=== PATIENT | male | born 1945 | race Caucasian/White ===

== ENCOUNTER 2017-02-25 10:28 | Inpatient (IN) | payer MEDICARE, OTHER ==
[~2017-02-25] VITALS: Ht 175.3 cm; Wt 103.4 kg
[2017-02-25] VITALS (9 sets, daily range): BP systolic 104–127; BP diastolic 69–72; PULSE 85–113; RESP 18–24; O2SAT 83–95
[~2017-02-25 10:28] MED LIST: ALLO100T PO; ASPI81TA PO; BENA40TA60 PO; CARV25T PO; FURO20TA PO; PRAV80TA PO
--- NOTE | 2017-02-25 11:01 | ED.REPORT ---
HPI-Dyspnea / Wheezing Date of Service February 25, 2017 ED Provider: Rojelio Camp 71 year old male with a history of COPD, CHF, and atrial fibrillation presents to the ER accompanied by his complaining of two weeks of shortness of breath and cough. He was referred by Dr. Garsia, PCP, due to decreased O2 saturation in the 80's at his appointment today. Associated symptoms include bilateral lower extremity swelling, and chills. reports intermittent severe coughing fits lasting up to 3 minutes, and a "rattling" noise with inspiration. He also reports numbness of the bilateral lower extremities, though he states this is chronic. For years he has slept upright to relieve respiratory symptoms. Patient denies chest pain, abdominal pain, and fever. Nursing Notes Stated Complaint: RESP PROBLEMS,SENT BY Chief Complaint: Respiratory Distress Nursing Notes Reviewed: Yes Allergies: Coded Allergies: No Known Allergies (Verified , 08/17/13) Scheduled Allopurinol-Expunged Drug, Do Not Renew! (Allopurinol-Expunged Drug, Do Not Renew!) 100 Mg Tablet 100 MG PO DAILY Atorvastatin (Lipitor) 40 Mg Tablet 40 MG PO DAILY Benazepril-Expunged Drug, Do Not Renew! (Lotensin-Expunged Drug, Do Not Renew!) 40 Mg Tablet 40 MG PO BID Furosemide (Furosemide) 40 Mg Tablet 40 MG PO BID Metoprolol Tartrate (Metoprolol Tartrate) 100 Mg Tablet 50 MG PO BID Warfarin Sodium (Warfarin Sodium) 5 Mg Tablet 5 MG PO DIRECTED 1 tablet PO on Sun, Tues, Thurs, and Sat 1.5 tablets PO on Mon, Wed, Fri General Time Seen by MD: 10:54 Chief Complaint Shortness of breath Hx Obtained From: Patient, Spouse Arrived By: Walk-in Sudden in Onset?: No Onset Occurred: More than a week ago... (2 weeks) Symptom Duration: Since onset Location: : None Associated with: Reports: Cough, Leg swelling, Denies: Chest pain, Fever Pertinent Negative: Pt denies other symptoms Exacerbated by: Lying flat Relieved by: Sitting up Recent Healthcare: Recent doctor visit Similar Sx Previous: Yes Past Medical History Past Medical History CODE STATUS: DNAR, DNI Reports: COPD, Congestive heart failure, Diabetes mellitus, Hypertension Reports: Atrial fibrillation Past Surgical History CABG x3 Bilateral femoral artery bypass Reports: Back/neck surgery (C-spine) Smoking History Unknown if Ever Smoker Social History 2-3 drinks, 3-4 days per week Other Social History: Good social support, Ambulatory Status Independent Review of Systems Constitutional: Reports: Chills, Denies: Fever Respiratory: Reports: Non-productive cough, Shortness of breath Cardiovascular: Denies: Chest pain Musculoskeletal: Reports: Extremity swelling (Lower, bilateral), Denies: Back pain, Neck pain Complete sys rev & neg: except as marked. GI: Denies: Abdominal pain, Nausea, Vomiting Neurologic: Reports: Numbness (Lower extremities, bilateral) Physical Exam Initial Vital Signs Vital Signs (First) Date Time Temp Pulse Resp B/P Pulse Ox O2 Delivery O2 Flow Rate FiO2 02/25/17 10:30 36.8 100 20 104/69 85 02/25/17 10:52 Room Air 02/25/17 12:44 2 Initial VS: Reviewed Head / Eyes: Atraumatic, Normocephalic Abdomen / GI: Soft, Non-tender, No guarding, No rebound, No distention Extremities: Vascular intact, Neuro intact, No swelling, No tenderness Skin: Warm, Dry, No cyanosis Neurologic: Alert, Oriented, Nonfocal Psychiatric: Mood/affect normal, Behavior normal, Normal thought content General/Constitutional: Awake, Alert Neck: Atraumatic, Supple, No meningismus, Full range of motion, No swelling, Non-tender, No masses Neck Vascular: Positive: JVD moderate Respiratory / Chest: No stridor, No chest tenderness, No chest wall deformity Rales / Rhonchi: Positive: Rhonchi coarse L, Rhonchi coarse R, Rhonchi diffuse Cardiovascular: Heart rate NL, No murmurs Heart Rate / Rhythm: Positive: Irregular rhythm Lower Ext Edema: Positive: Bilateral 2+ Interpretation & Diagnostics Lab Results Interpretation Result Diagram: 02/25/17 1115 02/25/17 1115 Test 02/25/17 11:15 02/25/17 11:30 02/25/17 12:44 White Blood Count 5.6th/mm3 (3.8-10.1) Red Blood Count 4.41mil/mm3 (4.40-5.80) Hemoglobin 13.7g/dL (13.8-17.2) Hematocrit 44.1% (41.0-50.0) Mean Corpuscular Volume 100.0fL (81-100) Mean Corpuscular Hemoglobin 31.1pg (27.0-35.0) Mean Corpuscular Hemoglobin Concent 31.1% (32.0-37.0) Red Cell Distribution Width 15.5% (12.3-15.4) Platelet Count 97bil/L (150-400) Neutrophils (%) (Auto) 65.6% (40-74) Lymphocytes (%) (Auto) 18.3% (14-46) Monocytes (%) (Auto) 14.6% (4-12) Eosinophils (%) (Auto) 1.1% (0-5) Basophils (%) (Auto) 0.2% (0-3) Prothrombin Time 26.0sec (8.1-12.5) Prothromb Time International Ratio 2.39ratio Sodium Level 135mEq/L (134-144) Potassium Level 4.3mEq/L (3.5-5.2) Chloride Level 93mEq/L (97-108) Carbon Dioxide Level 29mmol/L (18-29) Blood Urea Nitrogen 25mg/dL (8-27) Creatinine 1.34mg/dL (0.76-1.27) Estimat Glomerular Filtration Rate 56mL/min (>59) Glucose Level 139mg/dL (60-99) Calcium Level 9.2mg/dL (8.5-10.1) Magnesium Level 1.5mg/dL (1.6-2.6) Total Bilirubin 0.9mg/dL (0.0-1.2) Aspartate Amino Transf (AST/SGOT) 23U/L (0-50) Alanine Aminotransferase (ALT/SGPT) 5U/L (0-44) Alkaline Phosphatase 118U/L (25-160) Troponin T 0.029ug/L (0.0-0.011) Pro-B-Type Natriuretic Peptide 4006pg/mL (0-376) Total Protein 6.6g/dL (6.4-8.4) Albumin 3.3g/dL (3.4-5.0) Procalcitonin 0.08ng/mL (0.00-0.08) Lactic Acid Level 1.2mmol/L (0.4-2.0) Urine Color Yellow (YELLOW) Urine Appearance Clear (CLEAR,HAZY) Urine pH 5.5 (5.0-8.0) Urine Specific [place] 1.015 (1.003-1.035) Urine Protein Tracemg/dL (NEG,TRACE) Urine Glucose (UA) Negativemg/dL (NEGATIVE) Urine Ketones Negativemg/dL (NEGATIVE) Urine Occult Blood Negative (NEGATIVE) Urine Nitrite Negative (NEGATIVE) Urine Bilirubin Negative (NEGATIVE) Urine Urobilinogen Normalmg/dL (NORMAL) Urine Leukocyte Esterase Negative (NEGATIVE) Urine RBC 0-2/hpf (0-2) Urine WBC 0-5/hpf (0-5) Urine Epithelial Cells Occasional/hpf (NONE-MOD) Urine Crystals Oxalic acid crystals (NONE Urine Bacteria None/hpf (NONE-FEW) Urine Hyaline Casts 5/20/lpf (NONE) Urine Granular Casts None seen (NONE SEEN) Urine Waxy Casts None seen (NONE SEEN) Urine Red Blood Cell Casts None seen (NONE SEEN) Urine White Blood Cell Casts None seen (NONE SEEN) Urine Mucus Present (None Seen) Urine Trichomonas None seen (NONE SEEN) Urine Yeast None (NONE SEEN) Urinalysis Comment None Urine Culture Reflexed Not indicated ECG Interpretation ECG Interpretation: Atrial fibrillation, rate 77 Time: 10:54 Interpreted by: ED physician X-Ray Chest Interpretation Chest Xray Interpretation: IMPRESSION: Cardiomegaly with edema. Dictated by: Amy Way M.D. on 02/25/2017 at 12:05 Approved by: Amy Way M.D. on 02/25/2017 at 12:07 View: Portable, 1 view Interpretation / Wet Read by: Interpret - Radiologist Re-Eval/Medical Decision Med Decision/Clinical Course Toxic respiratory failure likely due to predominantly congestive heart failure with superimposed chronic bronchitis. Patient received IV Lasix, supple no oxygen, multiple medical treatments and IV steroids. He will be admitted. Source of Hx: Old records Re-Evaluation/Progress #1: Time of Eval: 11:12 Re-Evaluation/Progress Note: Discussed physical examination findings and need for admission pending further diagnostic testing. All other questions addressed. Re-Evaluation/Progress #2: Time of Eval: 12:23 Re-Evaluation/Progress Note: Discussed lab and imaging results and need for admission. Patient is amenable to the plan. All other questions addressed. Re-Evaluation/Progress #3: Time of Eval: 13:34 Re-Evaluation/Progress Note: Discussed code status with patient. CODE STATUS: DNAR, DNI Consultation : Referral / Consult Name: Parvin Mcknight DO Consulted With: Hospitalist Call Returned at: 13:32 Hotel Registration Clerk: Agrees with eval, Agrees with plan, Accepts admit Counseled Regarding: Diagnosis, Lab results, Need for admission Discharge & Departure Impression: Primary Impression: CHF exacerbation Additional Impression: Acute respiratory failure with hypoxia Disposition: ADMITTED TO HOSPITAL Discharge Condition All VS Reviewed: Yes Condition: Stable Referrals: Marisol Garsia MD (PCP) Scribe Attestation Portions of this note were transcribed by Petar Hardy. I, Dr. Camp, personally performed the history, physical exam and medical decision-making; I reviewed and confirmed the accuracy of the information in the transcribed note. Signed by: Kentrell Fermin, 02/25/2017 and 13:35 copies to: Marisol Garsia MD, Timothy S DO February 25, 2017 11:01 PETAR HARDY February 25, 2017 11:03
[2017-02-25] MEDS ORDERED: FURO40TA4 PO (11:03)
[2017-02-25] MEDS ORDERED: METO100T3 PO (11:04)
[2017-02-25] MEDS ORDERED: WARF5TAB7 PO (11:04)
[2017-02-25] MEDS ORDERED: LIP40 PO (11:04)
[2017-02-25] MEDS ORDERED: MethylprednisoLONE Sodium Succinate 62.5 mg/mL 2 mL Inj IVPUSH ONE (11:15)
[2017-02-25 11:29] LABS: BASOPHILS % (AUTO) 0.2 % (0-3); EOSINOPHILS % (AUTO) 1.1 % (0-5); MONOCYTES % (AUTO) 14.6 % (4-12); Mean Corpuscular Hemoglobin 31.1 pg (27.0-35.0); NEUTROPHILS % (AUTO) 65.6 % (40-74); Platelet Count 97 bil/L (150-400)
[2017-02-25 11:52] LABS: INR 2.39 ratio; TROPONIN T 0.029 ug/L (0.0-0.011)
--- NOTE | 2017-02-25 12:08 | DRSVH ---
PROCEDURE: X-RAY CHEST ONE VIEW, PORTABLE ([id number]) INDICATIONS: SOB TECHNIQUE: One view of the chest was acquired. COMPARISON: [facility], , CHEST 2VW, 03/19/2012, 15:06. FINDINGS: Surgical changes and devices: None. Lungs and pleura: No pleural effusions or pneumothorax. There is increased pulmonary vascularity. Mediastinum: Mediastinal contours appear normal. Heart size is mildy enlarged. Bones and chest wall: No suspicious bony lesions. Overlying soft tissues appear unremarkable. IMPRESSION: Cardiomegaly with edema. Dictated by: Amy Way M.D. on 02/25/2017 at 12:05 Approved by: Amy Way M.D. on 02/25/2017 at 12:07
[2017-02-25 12:16] LABS: Magnesium 1.5 mg/dL (1.6-2.6)
[2017-02-25] MEDS ORDERED: Albuterol 2.5 mg/3 mL Inhalation Solution NEB ONE (12:20)
[2017-02-25] MEDS ORDERED: Furosemide 10 mg/mL 4 mL Inj IVPUSH ONE (12:20)
[2017-02-25 13:08] LABS: APPEARANCE,URINE CLEAR (CLEAR,HAZY); COLOR,URINE YELLOW (YELLOW); OCCULT BLOOD,URINE NEGATIVE (NEGATIVE); PH,URINE 5.5 (5.0-8.0); UROBILINOGEN,URINE NORMAL (NORMAL)
[2017-02-25] MEDS ORDERED: Alum-Mag Hydrox-Simeth 30 mL Suspension PO PRN (13:35)
[2017-02-25] MEDS ORDERED: Ondansetron 2 mg/mL 2 mL Inj IVPUSH PRN (13:35)
[2017-02-25] MEDS ORDERED: ZYL100 PO (14:06)
[2017-02-25] MEDS ORDERED: BENA40TA2 PO (14:08)
[2017-02-25] MEDS ORDERED: Levalbuterol 1.25 mg/0.5mL Inhalation Solution NEB PRN (14:15)
[2017-02-25] MEDS: Furosemide 10 mg/mL 4 mL Inj IVPUSH SCH ×2 (14:46→20:29)
--- NOTE | 2017-02-25 14:53 | NUR ---
Admit Pt arrived to the floor at 1345, he was brought by ED staff by willi. Pt was able to stand and transfer himself to the bed. He was a SBA to the bathroom and voided. Denies pain. Alert and oriented. Arrived on 2L O2, denies SOB. Vitals were checked. O2 sat stable on 2L. Put on tele monitor. Oriented to room and call light.
[2017-02-25] MEDS: Ipratropium HFA 200 Puff 12.9 Gm Inhaler INHALATION SCH ×2 (16:30→22:21)
[2017-02-25] MEDS ORDERED: Heparin 5,000 Unit/mL Inj SUBQ SCH (16:30)
--- NOTE | 2017-02-25 20:25 | PCM.HPMED ---
Subjective Date of Service February 25, 2017 Primary Provider: Admitting Physician: Primary Care Physician: Marisol Garsia MD Attending Physician: Admit Status: From the Emergency Department Chief Complaint: Dyspnea History of Present Illness: 71-year-old white male with the past medical history of COPD, chronic bronchitis , gout, congestive heart failure of unknown type, hypertension, atrial fibrillation for which she is on Coumadin, peripheral neuropathy is presenting to the ER from his primary care office. He went to see his PCP as he has been increasingly dyspneic and his PCP was concerned as he was hypoxic and needed oxygen at the clinic. Patient does not have home oxygen, or COPD medications. He says Dr. Koehler for cardiology. He states that at baseline he can only walk 100 feet before becoming short of breath, states it is because of his heart. 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 Patient does not remember whether he took his a.m. medications are not. He states that he has no fevers or chills no vision problems no chest pain. He is finding it hard to lay down flat. is endorsing our double wheezing when he breathes from across the room. Patient denies vision problems, digestive problems, headaches, recent weight loss or weight gain. He does have cough. In the ER chest x-ray showed cardiomegaly with edema. Blood cultures were drawn. Troponins were 0.029, proBNP was elevated at 4000. BUN 25, creatinine 1.34, INR 2.39. He was given 40 mg of IV Lasix, 2 L of oxygen, albuterol treatments, Solu-Medrol 125 mg 1 time dose. ECG Interpretation: Atrial fibrillation, rate 77 A prior echocardiogram from August 2015 showed atrial fibrillation, bradycardia with rate 40-60, ejection fraction of 50-55%, severe biatrial enlargement, aortic sclerosis without stenosis, septal dyskinesis. He does not recall receiving and neck: Within the last 1 year he has seen Dr. Koehler 6 months ago states that he is due in March for a follow-up Patient is admitted to the [facility] for management of acute on chronic heart failure of unknown type. Review of Systems: Gen.: No weight gain patient has been having fevers and malaise Eyes: no visual disturbances or blurring vision HEENT: No nose/throat drainage, no pain in ears or throat, no hearing loss L Cardiac: No chest pain, orthopnea, , palpitations , positive for pedal edema and +dyspnea on exertion Pulmonary: wheezing or bringing up of sputum + worsening dyspnea and cough, left-sided chest pain GI: No anorexia nausea vomiting blood or black in the stool : no dysuria hematuria urinary frequency or decrease in urine output Musculoskeletal: Joint swelling no joint pain no new muscle aches or back pain Neuro: No syncope, seizures no loss of consciousness no new focal weakness, positive for numbness or tingling in feet due to peripheral neuropathy Psychiatric: New new anxiety insomnia or depression Endocrine: No new heat or cold intolerances polyuria or polydipsia Hematology: No lymphadenopathy or easy bleeding or bruising noted skin: Positive for new rashes over her lower legs especially right lower leg, positive for stasis dermatitis Allergies Coded Allergies: No Known Allergies (Verified , 08/17/13) PMH Remarkable for COPD, chronic bronchitis, gout, congestive heart failure, hypertension, atrial fibrillation, severe peripheral neuropathy Surgical History Remarkable for bilateral femoral artery bypass, back or neck C-spine surgery Family History Remarkable for 2-3 drinks 3-4 days per week, half a pack of cigarettes for 60 years, he is a retired [employer] employee. Lives with Social History Occupation: retired [employer] Hx Alcohol Use: Yes ("3 drinks of liquor 4 days a week") Hx Substance Use: No Hx Tobacco Use: Yes (1/2 ppd) Smoking Status: Current Every Day Smoker (half a pack per day), Unknown if Ever Smoker Living Arrangement: with Family Exam Vital Signs Vital Sign - Last Date Time Temp Pulse Resp B/P Pulse Ox O2 Delivery O2 Flow Rate FiO2 02/25/17 12:44 85 18 92 Nasal Cannula 2 02/25/17 10:30 36.8 104/69 Exam Gen.: No acute distress: HEENT: Normocephalic, atraumatic Heart: Irregular, no S3-S4 murmurs Lungs: Bilateral crackles and rales noted, negative for wheezing Abdomen: Normal, nontender, nondistended, normal bowel sounds Extremities: Bilateral lower extremity erythema and edema noted. Right lower extremity worse than left Psych: Negative for anxiety Neuro: No focal deficits Lab and Diagnostics Result Diagram: 02/25/17 1115 02/25/17 1115 X-Rays, CTs and MRIs PROCEDURE: X-RAY CHEST ONE VIEW, PORTABLE ([id number]) INDICATIONS: SOB IMPRESSION: Cardiomegaly with edema. Dictated by: Amy Way M.D. on 02/25/2017 at 12:05 Approved by: Amy Way M.D. on 02/25/2017 at 12:07 Assessment & Plan This is a 71-year-old male presenting to the ER with symptoms of acute on chronic congestive heart failure. Assessment #1 acute on chronic congestive heart failure of unknown type: Present on admission -- Lasix 40 mg IV every 8 hours -- Accurate I&O's, daily weights -- Nitroglycerin has not been ordered due to concern for low blood pressure upon arrival -- Morphine 1-2 g every 4 hours when necessary -- Continue metoprolol, atorvastatin home medications -- Oxygen to keep saturations 80-92% Assessment #2 cellulitis of lower legs, present on admission -- Keflex by mouth he is ordered Assessment #3 COPD, chronic -- Xopenex, Atrovent breathing treatments -- We will hold off on Solu-Medrol as this appears to be primarily CHF -- Nicotine patch Assessment #4 hypertension, chronic -- We will hold benazepril tonight as he will be getting furosemide and blood pressure was on the low side -- Continue metoprolol Assessment #5 atrial fibrillation, chronic: Therapeutic INR upon arrival X -- Pharmacy consult is placed for Coumadin Assessment #6 peripheral neuropathy, present on admission -- Gabapentin 100 mg twice a day is ordered Assessment #7 hyperlipidemia, chronic -- Continue home statin Disposition:: When patient's symptoms resolved he will be expected to be discharged to home GI Prophylaxis: Not indicated VTE Prophylaxis: Theraputic Anticoag with Warfarin Resuscitation Status: DNR/DNI:Do Not Resuscitate/Intubate ( is his alternate decision maker) Time spent 40 minutes Parvin Mcknight DO February 25, 2017 14:02
[2017-02-26] VITALS (7 sets, daily range): BP systolic 113–128; BP diastolic 63–73; PULSE 76–93; RESP 18–22; O2SAT 88–93
[2017-02-26] MEDS: Ipratropium HFA 200 Puff 12.9 Gm Inhaler INHALATION SCH ×3 (06:01→16:06)
[2017-02-26] MEDS: Furosemide 10 mg/mL 4 mL Inj IVPUSH SCH ×3 (09:14→20:21)
[2017-02-26 10:04] LABS: INR 2.36 ratio
--- NOTE | 2017-02-26 10:37 | PCM.CONPHA ---
Subjective Date of Service: February 26, 2017 Warfarin dosing Reason for Pharmacy Consult: Anticoagulation Management Assessment/Plan Assessment/Plan Indication: Afib Home Dose: 5mg Gupta,Tu,Th,Sa , 7.5mg AOD Anticoagulation Trends: Date -February 26-February INR 2.36 2.39 INR change 0.03 Warf Dose 5MG 5MG GOAL INR: 2-3 A/ INR is currently therapeutic and stable at 2.39. P/ Give warfarin 5mg dose today and reevaluate with AM labs tomorrow. Pharmacy will continue to follow daily. Thank you for consulting pharmacy in the care of this patient. [place] February 26, 2017 10:37
--- NOTE | 2017-02-26 12:41 | DRSVH ---
[facility] [address] [place] [address] Echocardiogram Report Name: MARYJO PABLO FStudy Date: 02/26/2017 Height: 69 in Hospital Exam Location: [facility] Weight: 240 lb Gender: Male BSA: 2.2 m2 : 1945 Age: 71 yrs BP: 120/71 mmHg Reason For Study: Congestive Heart Failure Ordering Physician: Performed By: Denisha Mensah Referring Physician: Dr. Brando Garsia Interpretation Summary The left ventricle is moderately dilated. Left ventricular systolic function is mild to moderately reduced. The ejection fraction is estimated to be 40- 45%. Compared to the prior exam, left ventricular function is slightly decreased. There is a large sized apical, septal, and anteroseptal wall motion abnormality with hypokinesis to akinesis of the segments. The right ventricle is mild to moderately dilated. Right ventricular systolic function is mildly reduced. The right ventricular systolic pressure is estimated at 56 mmHg assuming a right atrial pressure of 15 mm Hg. The left atrium is severely dilated. The right atrium is moderate to severely dilated. There is mild mitral regurgitation. There is mild to moderate tricuspid regurgitation. There is no other significant valvular heart disease. No significant changes since last study. The aortic root is normal size. Procedure: A two-dimensional transthoracic echocardiogram with color flow and Doppler was performed. The study quality was technically adequate. Comparison is made with the echocardiogram of 09-01-15. The patient was in atrial fibrillation with heart rates between 86-101 bpm during the exam. Left Ventricle: The left ventricle is moderately dilated. Left ventricular wall thickness is at the upper limits of normal. Left ventricular systolic function is mild to moderately reduced. The ejection fraction is estimated to be 40-45%. Compared to the prior exam, left ventricular function is slightly decreased. Diastolic function could not be accurately assessed due to atrial fibrillation. Right Ventricle: The right ventricle is mild to moderately dilated. Right ventricular systolic function is mildly reduced. Atria: The left atrium is severely dilated. The right atrium is moderate to severely dilated. The interatrial septum is intact with no evidence for an atrial septal defect. Mitral Valve: The mitral valve leaflets appear mildly thickened, but open well. The mitral valve leaflets are slightly calcified. There is mild to moderate mitral annular calcification. There is mild mitral regurgitation. Aortic Valve: The aortic valve opens well. The aortic valve is slightly calcified. There is no aortic regurgitation. Tricuspid Valve: The tricuspid valve leaflets are thin and pliable. There is mild to moderate tricuspid regurgitation. The right ventricular systolic pressure is estimated at 56 mmHg assuming a right atrial pressure of 15 mm Hg. Pulmonic Valve: The pulmonic valve is not well seen, but is grossly normal. There is trace pulmonic regurgitation. There is no other significant valvular heart disease. Great Vessels: The aortic root is normal size. The ascending aorta is at the upper limits of normal in size. The IVC is dilated (diameter is greater than 2.1 cm) and it collapses less than 50% with a sniff. This suggests a high right atrial pressure of 15 mm Hg. Pericardium/ Pleura There is no pericardial effusion. There is no pleural effusion. I WMSI = 1.50 % Normal = 63 There is a la rge sized apical, septal, and anteroseptal wall motion abnormality w ith hypokinesis to akinesis of t he segments. Segments Size X - Cannot 1 - Normal 2 - 3 - Akinetic 4 - 1-2 small Interpret Hypokinetic Dyskinetic 3-5 moder ate 5 - 6-14 large Aneurysmal 15-16 diffu se MMode/2D Measurements & Calculations LVIDd: 6.2 cm LA dimension: 4.9 cm RA long axis: 7.3 cm LVOT diam: 2.3 cm LVIDs: 4.3 cm LA A2 area: 34.0 cm RA area: 30.9 cm AoV Opening FS: 30.1 % RA vol: 111.3 ml EPSS: 1.1 cm LA A4 area: 33.1 cm Ao root diam IVSd: 1.1 cm LA length (vol) RA : 49.9 ml/m LVPWd: 0.95 cm RVDd major: 8.6 cm Aortic Jxn: 2.9 cm LA vol: 144.1 ml asc Aorta Diam LA vol index Ao Arch Diam (Prox IVC diam: 2.9 cm Trans): 3.2 cm EDV(MOD-sp2) LV burr. diameter/BSA LV sys. diameter/BSA RVD1 (basal) (cm/m^2): 2.8 (cm/m^2): 1.9 : 4.9 cm ESV(MOD-sp2) EF(MOD-sp2) RVD2 (mid) : 4.4 cm Doppler Measurements & Calculations Ao V2 max MV P1/2t: 57.9 msec Med Peak E' Raulito TR max raulito : 163.4 cm/sec MVA(VTI): 3.7 cm2 : 321.1 cm/sec Ao max PG Lat Peak E' Raulito TR max PG : 10.7 mmHg : 41.2 mmHg Ao mean PG PA V2 max : 91.2 cm/sec LVOT Max Raulito PA mean PG : 87.9 cm/sec GRABIEL(I,D): 2.2 cm PA Accel Time sev ratio : 0.13 sec MV V2 mean MV P1/2t max raulito Ao V2 mean LV V1 max PG : 72.6 cm/sec : 115.6 cm/sec MV mean PG Ao V2 VTI: 34.4 cm LV V1 VTI MVA(P1/2t): 3.8 cm2 : 18.1 cm MV V2 VTI GRABIEL(V,D): 2.3 cm2 : 20.8 cm PA V2 mean GRABIEL indexed to BSA : 52.2 cm/sec (cm^2/m^2): 1.0 Reading Physician:CLAUDIA
--- NOTE | 2017-02-26 14:29 | NUR ---
Social Work-initial assessment/Readiness for Discharge: Data:See initial assessment. Pt is a 71 y/o male who was admitted on 02/25/17 for CHF exacerbation, hypoxic resp failure per H&P. Pt's insurance is [employer] and PCP is Marisol Garsia MD. EMR Reviewed. Pt's readmission score is 2-no risk. SW met with pt at bedside to discuss discharge planning, SW role explained. Pt is alert and oriented x3. Pt resides at home with Renetta in a single level home where pt remains independent with basic ADLs. Pt uses no DME at baseline and does not drive. Pt has no HH or SNF history. Pt has not completed DPOA/advanced directive and is not interested in information. Pt has no exterminator helper care or VA benefits. SW inquired about pt's alcohol use and he stated he is not interested in resources, declined further assessment. Per morning rounds pt is likely to discharge home tomorrow. Pt is up independent in room. Pt's family to provide transport home at discharge. SW provided phone number and plan on white board in room. SW will continue to follow. Assessment:Pt who resides at home with and is independent at baseline. Plan:Pt to likely discharge home via POV. Declining CD assessment/resources. No needs assessed at this time. SW will continue to follow. AXEL Robertson Addendum: 02/26/17 at 1539 by ANTHONY EVERETT SS Amended: Links added.
[2017-02-26] MEDS ORDERED: Albuterol-Ipratropium 3 mL Inhalation Solution NEB PRN (19:25)
--- NOTE | 2017-02-26 20:17 | DRSVH ---
PROCEDURE: X-RAY CHEST, TWO VIEWS ([id number]) INDICATIONS: congestive heart failure, chronic obstructive pulmonary disease TECHNIQUE: 2 views of the chest were acquired. COMPARISON: [facility], , CHEST 2VW, 03/19/2012, 15:06. FINDINGS: Surgical changes and devices: Sternotomy with mediastinal postoperative changes. Lungs and pleura: No pleural effusions or pneumothorax. Left basilar pulmonary opacities. Remaining lungs are clear. Mediastinum: Mediastinal contours are normal. Heart size is normal. Bones and chest wall: No suspicious bony abnormalities. Soft tissues appear unremarkable. IMPRESSION: Left basilar pulmonary opacities mildly increased over the previous chest radiographs mos t consistent with scarring and/or atelectasis. Consider a chest CT with contrast which may be perform ed on a non-emergent basis to exclude any underlying mass lesion. Dictated by: Duke Rico M.D. on 02/26/2017 at 20:05 Approved by: Duke Rico M.D. on 02/26/2017 at 20:10
[2017-02-26] MEDS: MethylprednisoLONE Sodium Succinate 40 mg/mL Inj IV SCH (20:21)
[2017-02-26] MEDS: Albuterol-Ipratropium 3 mL Inhalation Solution NEB SCH ×2 (20:30→22:53)
--- NOTE | 2017-02-26 22:49 | PCM.PNMED ---
Subjective Date of Service February 26, 2017 Subjective Patient states he feels about the same. He did diurese well from IO's. He states that he coughed a bit last night but not as bad today . His legs are still puffy. Exam Vital Signs Vital Sign - Last Date Time Temp Pulse Resp B/P Pulse Ox O2 Delivery O2 Flow Rate FiO2 02/26/17 14:00 36.6 90 20 125/72 91 Nasal Cannula 1.50 Intake and Output 02/25/17 02/25/17 02/26/17 Cumulative From/Thru 15:00 23:00 07:00 02/25/17 10:30 - 02/26/17 05:35 Intake Total 500 ml 725 ml 1225 ml Output Total 200 ml 800 ml 1225 ml 2225 ml Balance -200 ml -300 ml -500 ml -1000 ml Intake Oral 500 ml 725 ml 1225 ml Output Urine Total 200 ml 800 ml 1225 ml 2225 ml # Bowel Movements 0 0 Exam General: NAD, laying in bed, some what dyspneic male HEENT: NCAT, poor dentition Eyes: [place] conjunctivae. No ptosis, PERRL Neck: No masses, trachea midline, no thyromegaly, positive for JVD legs R leg improved edema, erythema Lungs: Diffuse crackles and wheezes CV: RRR, positive for soft systolic murmur murmurs GI: Soft, non-tender with no hepatosplenomegaly MSK: Normal gait and station, no digital cyanosis Skin: Warm and dry. Impaired erythema on the right lower leg Psych: A&O X3, with appropriate affect IVs and Medications Medications Reviewed: Medications were reviewed in detail Lab and Diagnostics Laboratory Tests Test 02/25/17 23:15 02/26/17 05:56 02/26/17 09:40 02/26/17 12:10 Troponin T 0.010ug/L (0.0-0.011) Sodium Level 134mEq/L (134-144) Potassium Level 5.3mEq/L (3.5-5.2) 4.8mEq/L (3.5-5.2) Chloride Level 93mEq/L (97-108) Carbon Dioxide Level 30mmol/L (18-29) Blood Urea Nitrogen 27mg/dL (8-27) Creatinine 1.10mg/dL (0.76-1.27) Estimat Glomerular Filtration Rate 70mL/min (>59) Glucose Level 116mg/dL (60-99) Calcium Level 8.7mg/dL (8.5-10.1) Prothrombin Time 25.7sec (8.1-12.5) Prothromb Time International Ratio 2.36ratio Microbiology 02/25/17 Blood Culture - Preliminary, Resulted NO GROWTH AFTER 24 HOURS 02/26/17 Sputum Quality Screen - Final, Resulted 02/26/17 Sputum Culture, Resulted Pending Result Diagram: 02/25/17 1115 02/26/17 1210 X-Rays, CTs and MRIs PROCEDURE: X-RAY CHEST ONE VIEW, PORTABLE ([id number]) INDICATIONS: SOB IMPRESSION: Cardiomegaly with edema. Dictated by: Amy Way M.D. on 02/25/2017 at 12:05 Approved by: Amy Way M.D. on 02/25/2017 at 12:07 PROCEDURE: X-RAY CHEST, TWO VIEWS ([id number]) I IMPRESSION: Left basilar pulmonary opacities mildly increased over the previous chest radiographs most consistent with scarring and/or atelectasis. Consider a chest CT with contrast which may be performed on a non-emergent basis to exclude any underlying mass lesion. Dictated by: Duke Rico M.D. on 02/26/2017 at 20:05 Approved by: Duke Rico M.D. on 02/26/2017 at 20:10 Cardiac Echo Impressions US echo Interpretation Summary The left ventricle is moderately dilated. Left ventricular systolic function is mild to moderately reduced. The ejection fraction is estimated to be 40- 45%. Compared to the prior exam, left ventricular function is slightly decreased. There is a large sized apical, septal, and anteroseptal wall motion abnormality with hypokinesis to akinesis of the segments. The right ventricle is mild to moderately dilated. Right ventricular systolic function is mildly reduced. The right ventricular systolic pressure is estimated at 56 mmHg assuming a right atrial pressure of 15 mm Hg. The left atrium is severely dilated. The right atrium is moderate to severely dilated. There is mild mitral regurgitation. There is mild to moderate tricuspid regurgitation. There is no other significant valvular heart disease. No significant changes since last study. The aortic root is normal size. Assessment & Plan This is a 71-year-old male presenting to the ER with symptoms of acute on chronic congestive heart failure. Assessment #1 acute on chronic congestive heart failure of unknown type: Present on admission -- Lasix 40 mg IV every 8 hours: Change to Lasix 40 mg IV to 12 hours -- Accurate I&O's, daily weights: He diuresed close to 3 L -- Nitroglycerin has not been ordered due to concern for low blood pressure upon arrival -- Morphine 1-2 g every 4 hours when necessary -- Continue metoprolol, atorvastatin home medications -- Oxygen to keep saturations 80-92% Assessment #2 cellulitis of lower legs, present on admission -- Keflex by mouth he is ordered Assessment #3 COPD exacerbation, acute on chronic -- Xopenex, Atrovent breathing treatments -- We will hold off on Solu-Medrol as this appears to be primarily CHF -- Nicotine patch -- Solu-Medrol 40 mg IV twice a day -- Repeat chest x-ray: Left basilar pulmonary opacities mildly increased over the previous chest radiographs most consistent with scarring and/or atelectasis. Consider a chest CT with contrast which may be performed on a non- emergent basis to exclude any underlying mass lesion. Assessment #4 hypertension, chronic -- We will hold benazepril tonight as he will be getting furosemide and blood pressure was on the low side -- Continue metoprolol Assessment #5 atrial fibrillation, chronic: Therapeutic INR upon arrival X -- Pharmacy consult is placed for Coumadin -- INR in therapeutic range Assessment #6 peripheral neuropathy, present on admission -- Gabapentin 100 mg twice a day is ordered Assessment #7 hyperlipidemia, chronic -- Continue home statin Disposition:: When patient's symptoms resolved he will be expected to be discharged to home Pain Evaluation: Adequate Pain Control GI Prophylaxis: Not indicated VTE Prophylaxis: Theraputic Anticoag with Warfarin VTE Mechanical Devices: Venous Foot Pump Resuscitation Status: DNR/DNI:Do Not Resuscitate/Intubate ( is his alternate decision maker) Time spent 25 minutes Parvin Mcknight DO February 26, 2017 19:28
[2017-02-27] VITALS (12 sets, daily range): BP systolic 100–132; BP diastolic 60–76; PULSE 11–118; RESP 1–22; O2SAT 91–98
[2017-02-27] MEDS: Albuterol-Ipratropium 3 mL Inhalation Solution NEB SCH ×4 (02:30→20:54)
--- NOTE | 2017-02-27 04:20 | NUR ---
Respiratory Patient's oxygen was increased to 4L/min for saturations 86-88% on 1.5L. Patient has been spot-checked through the night, 92-93% on 4L. With auscultation, crackles heard in middle and lower lobes bilaterally. Patient had intermittent cough around 8-midnight, swallowed sputum, stated that most of his phlegm comes up at night. Reports chronic dyspnea with exertion, denies at rest. Administered HS dose of Lasix, patient has voided multiple times. Nebulizer treatment per RT. Vital signs stable other than O2 being increased. Call light within reach, intentional rounding in place.
[2017-02-27 06:29] LABS: Mean Corpuscular Hemoglobin 31.5 pg (27.0-35.0); Mean Corpuscular Volume 101.1 fL (81-100)
[2017-02-27 07:01] LABS: INR 2.13 ratio
[2017-02-27] MEDS: MethylprednisoLONE Sodium Succinate 40 mg/mL Inj IV SCH (08:57)
[2017-02-27] MEDS: Furosemide 10 mg/mL 4 mL Inj IVPUSH SCH ×2 (08:57→22:03)
--- NOTE | 2017-02-27 10:48 | PCM.PHAPRO ---
Progress Warfarin dosing WARFARIN MAINTENANCE DOSE Patient on warfarin for A.Fib Home weekly warfarin dose: 5mg x 4 days, 7.5mg x 3 days goal INR 2-3 Today's INR 2.13 Date February 26-February 27-February INR 2.36 2.39 2.13 INR change 0.03 -0.26 Warf Dose 5MG 5 MG 7.5MG Plan: * warfarin 7.5mg today * check INR tomorrow * pharmacy to continue to follow patient's warfarin needs Juany Kong Pharm.D February 27, 2017 10:48
--- NOTE | 2017-02-27 17:28 | DRSVH ---
PROCEDURE: CT ANGIO CHEST PULMONARY EMBOLISM ([id number]) INDICATIONS: dyspnea, hypoxia TECHNIQUE: After the administration of intravenous contrast, 2 mm thick sections acquired from the pulmonary api aurelio to the posterior costophrenic angles. 3-dimensional maximum intensity projection (MIP) coronal a nd sagittal reformats were then acquired through the thorax. For radiation dose reduction, the follo wing was used: automated exposure control, adjustment of mA and/or kV according to patient size. COMPARISON: [facility], CT, CHEST ANGIO-PE, 07/07/2009, 20:22. FINDINGS: Image quality: There is motion artifact limiting evaluation. Pulmonary arteries: Pulmonary arteries demonstrate no intraluminal filling defects to suggest centra l pulmonary embolism. Evaluation of distal subsegmental branches is limited by motion artifact. The re is enlargement of the pulmonary arteries suggestive of pulmonary arterial hypertension. Lungs and pleura: There is mild motion artifact limiting evaluation. There are linear areas of band like atelectasis or consolidation in the lower lobes posteriorly. There is associated mild bronchia l wall thickening with areas of mucus plugging. Findings are suggestive of aspiration. There is a s ubtle linear opacity in the left upper lobe measuring 5 mm on series 6 image 14 decreased in prominen ce from the prior study and suggestive of scarring. No pleural effusions or pneumothorax. Central a nd peripheral airways are patent. Mediastinum: Heart size is within normal overall size limits with mild biatrial enlargement. No per icardial effusion. There are postsurgical changes consistent with prior CABG. There are a few mildl y enlarged mediastinal and hilar lymph nodes including confluent azygoesophageal lymph nodes measurin g up to 2 cm. Thoracic aorta is normal in caliber and enhancement. Esophagus is normal in caliber, without hiatal hernia. Bones and chest wall: No suspicious bony lesions. Ribs and thoracic spine appear intact throughout. Thyroid gland demonstrates no discrete nodules. No axillary or supraclavicular adenopathy. Abdomen: Visualized upper abdomen demonstrates a few mildly enlarged mesenteric lymph nodes includin g celiac axis nodes measuring up to 1.2 cm in short axis. Findings are similar to the prior study. IMPRESSION: 1. No central pulmonary embolism with evaluation of distal subsegmental branches limited due to kyleigh on artifact. 2. Bibasilar linear atelectasis or consolidation as well as mild bronchial wall thickening and mucou s plugging suggestive of aspiration. 3. Mildly enlarged mediastinal, infrahilar, and upper abdominal mesenteric lymph nodes are similar t o the prior study and suggestive of reactive nodes. 4. Enlargement of the pulmonary arteries suggesting pulmonary arterial hypertension. Dictated by: Rocco Sahu M.D. on 02/27/2017 at 17:14 Approved by: Rocco Sahu M.D. on 02/27/2017 at 17:20
--- NOTE | 2017-02-27 21:23 | PCM.PNMED ---
Subjective Date of Service February 27, 2017 Subjective Patient is seen and examined. He states that he is feeling a lot more better today. He complains of no fevers or chills. His legs have improved as well, though not back to normal. He is still on 1-2 L of oxygen. He is saying that he would like to go home tomorrow if possible. Exam Vital Signs Vital Sign - Last Date Time Temp Pulse Resp B/P Pulse Ox O2 Delivery O2 Flow Rate FiO2 02/27/17 21:02 37.0 82 22 118/74 98 Nasal Cannula 2.50 Intake and Output 02/26/17 02/26/17 02/27/17 Cumulative From/Thru 15:00 23:00 07:00 02/25/17 10:30 - 02/26/17 22:37 Intake Total 840 ml 2065 ml Output Total 1375 ml 3600 ml Balance -535 ml -1535 ml Intake Oral 840 ml 2065 ml Output Urine Total 1375 ml 3600 ml # Bowel Movements 0 Exam General: NAD, laying in bed, some what dyspneic male HEENT: NCAT, poor dentition Eyes: [place] conjunctivae. No ptosis, PERRL Neck: No masses, trachea midline, no thyromegaly, positive for JVD legs improved edema, erythema Lungs: Good lungs sounds CV: RRR, positive for soft systolic murmur murmurs GI: Soft, non-tender with no hepatosplenomegaly MSK: Normal gait and station, no digital cyanosis Skin: Warm and dry. erythema on the right lower leg Psych: A&O X3, with appropriate affect IVs and Medications Medications Reviewed: Medications were reviewed in detail Lab and Diagnostics Result Diagram: 02/27/17 0552 02/27/171929 X-Rays, CTs and MRIs PROCEDURE: X-RAY CHEST ONE VIEW, PORTABLE ([id number]) INDICATIONS: SOB IMPRESSION: Cardiomegaly with edema. Dictated by: Amy Way M.D. on 02/25/2017 at 12:05 Approved by: Amy Way M.D. on 02/25/2017 at 12:07 PROCEDURE: X-RAY CHEST, TWO VIEWS ([id number]) I IMPRESSION: Left basilar pulmonary opacities mildly increased over the previous chest radiographs most consistent with scarring and/or atelectasis. Consider a chest CT with contrast which may be performed on a non-emergent basis to exclude any underlying mass lesion. Dictated by: Duke Rico M.D. on 02/26/2017 at 20:05 Approved by: Duke Rico M.D. on 02/26/2017 at 20:10 = Chest CTA PE protocol IMPRESSION: 1. No central pulmonary embolism with evaluation of distal subsegmental branches limited due to motion artifact. 2. Bibasilar linear atelectasis or consolidation as well as mild bronchial wall thickening and mucous plugging suggestive of aspiration. 3. Mildly enlarged mediastinal, infrahilar, and upper abdominal mesenteric lymph nodes are similar to the prior study and suggestive of reactive nodes. 4. Enlargement of the pulmonary arteries suggesting pulmonary arterial hypertension. Dictated by: Rocco Sahu M.D. on 02/27/2017 at 17:14 Approved by: Rocco Sahu M.D. on 02/27/2017 at 17:20 Cardiac Echo Impressions US echo Interpretation Summary The left ventricle is moderately dilated. Left ventricular systolic function is mild to moderately reduced. The ejection fraction is estimated to be 40- 45%. Compared to the prior exam, left ventricular function is slightly decreased. There is a large sized apical, septal, and anteroseptal wall motion abnormality with hypokinesis to akinesis of the segments. The right ventricle is mild to moderately dilated. Right ventricular systolic function is mildly reduced. The right ventricular systolic pressure is estimated at 56 mmHg assuming a right atrial pressure of 15 mm Hg. The left atrium is severely dilated. The right atrium is moderate to severely dilated. There is mild mitral regurgitation. There is mild to moderate tricuspid regurgitation. There is no other significant valvular heart disease. No significant changes since last study. The aortic root is normal size. Reading Physician:CLAUDIA Chest CTA PE protocol -- IMPRESSION: 1. No central pulmonary embolism with evaluation of distal subsegmental branches limited due to motion artifact. 2. Bibasilar linear atelectasis or consolidation as well as mild bronchial wall thickening and mucous plugging suggestive of aspiration. 3. Mildly enlarged mediastinal, infrahilar, and upper abdominal mesenteric lymph nodes are similar to the prior study and suggestive of reactive nodes. 4. Enlargement of the pulmonary arteries suggesting pulmonary arterial hypertension. Dictated by: Rocco Sahu M.D. on 02/27/2017 at 17:14 Approved by: Rocco Sahu M.D. on 02/27/2017 at 17:20 Assessment & Plan This is a 71-year-old male presenting to the ER with symptoms of acute on chronic congestive heart failure. Assessment #1 acute on chronic congestive systolic heart failure: Present on admission -- Lasix 40 mg IV every 8 hours: Change to Lasix 40 mg IV to 12 hours -- Accurate I&O's, daily weights: He diuresed close to 3 L -- Nitroglycerin has not been ordered due to concern for low blood pressure upon arrival -- Morphine 1-2 g every 4 hours when necessary -- Continue metoprolol, atorvastatin home medications -- Oxygen to keep saturations 80-92% -- Patient is much improved still unknown to 2 L of oxygen -- Echo showed slightly worsened EF (40-45%) , pulm HTN. -- Added lisinopril to optimize therapy for CHF patient is already on atorvastatin, beta kristy metoprolol and Plavix. He takes some Lasix Assessment #2 cellulitis of lower legs, present on admission -- Keflex by mouth he is ordered -- Improving Assessment #3 COPD exacerbation, acute on chronic -- Xopenex, Atrovent breathing treatments -- We will hold off on Solu-Medrol as this appears to be primarily CHF -- Nicotine patch -- Solu-Medrol 40 mg IV twice a day: He switched to by mouth prednisone on 02/27 -- Repeat chest x-ray: Left basilar pulmonary opacities mildly increased over the previous chest radiographs most consistent with scarring and/or atelectasis. Consider a chest CT with contrast which may be performed on a non- emergent basis to exclude any underlying mass lesion. -- Chest CTA is performed: Negative for PE but there is concern for aspiration Assessment #4 pulmonary hypertension: As evidenced by the echo and CT scan. 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 Koehler with whom he has an appointment in a week and half. Patient should follow up with Dr. Koehler Assessment #5 concern for aspiration -- Swallow studies ordered Assessment #6 hypertension, chronic -- We will hold benazepril tonight as he will be getting furosemide and blood pressure was on the low side -- Continue metoprolol Assessment #7 atrial fibrillation, chronic: Therapeutic INR upon arrival X -- Pharmacy consult is placed for Coumadin -- INR in therapeutic range Assessment #8 peripheral neuropathy, present on admission -- Gabapentin 100 mg twice a day is ordered Assessment #9 hyperlipidemia, chronic -- Continue home statin assessment #10: Reactive abdominal lymphadenopathy -- We will discuss this with radiology assessment #11 hyperkalemia -- PO kayexalate is ordered in the AM -- Repeat lab in the evening Disposition:: When patient's symptoms resolved he will be expected to be discharged to home GI Prophylaxis: Not indicated VTE Prophylaxis: Theraputic Anticoag with Warfarin VTE Mechanical Devices: Venous Foot Pump Resuscitation Status: DNR/DNI:Do Not Resuscitate/Intubate ( is his alternate decision maker) Time spent 30 min Parvin Mcknight DO February 27, 2017 21:23
[2017-02-28] VITALS (13 sets, daily range): BP systolic 98–128; BP diastolic 60–80; PULSE 87–128; RESP 18–22; O2SAT 91–95
--- NOTE | 2017-02-28 06:01 | NUR ---
Noc activity pt has been pleasant and cooperative with care. Pt denies chest pain. Reports of still having mild SOB. Currently on 2LPM NC and saturating 90%. Will continue to titrate down o2 as tolerated. Hourly rounding done, Telemetry noted no abn ectopy. Hourly rounding in place. VSS and pt has slept most of the night.
[2017-02-28 06:18] LABS: INR 1.85 ratio
[2017-02-28] MEDS: Albuterol-Ipratropium 3 mL Inhalation Solution NEB SCH ×4 (07:41→20:06)
[2017-02-28] MEDS: Furosemide 10 mg/mL 4 mL Inj IVPUSH SCH (08:40)
[2017-02-28] MEDS: predniSONE 20 mg Tablet PO SCH (08:41)
--- NOTE | 2017-02-28 10:40 | NUR ---
Evaluation completed. Please go to "Notes" then click on "Assessments and Notes" (bottom left corner of screen). Then select appropriate discipline tab on top of screen.
--- NOTE | 2017-02-28 11:52 | NUR ---
Social Work: Readiness for d/c Data: Pt is on day 3 of hospitalization. EMR reviewed. Pt discussed in rounds. MD states pt likely to d/c today. CAR PARKER met with pt, offered and explained HH services. Pt declining HH at this time. No further d/c planning needs at this time. CAR PARKER will continue to follow if needs arise. Assessment: Pt who is independent at baseline. Plan: Pt will d/c home via POV, likely today per MD. Pt declining HH at this time. No further d/c planning needs at this time. CAR PARKER will continue to follow if needs arise. AXEL Hernandez
--- NOTE | 2017-02-28 12:00 | NUR ---
Activity Patient awaiting to hear about discharge. Pleasant mood, denies any pain. Gait steady.
--- NOTE | 2017-02-28 12:10 | NUR ---
Social Work: Discharge Data: Pt is on day 3 of hospitalization. EMR reviewed. D/C orders are in. Pt declining HH at this time. No further d/c planning needs at this time. G[employer] PL[employer] OPERATOR will continue to follow if needs arise. Assessment: Pt who is independent at baseline. Plan: Pt will d/c home via POV today. Pt declining HH at this time. No further d/c planning needs at this time. G[employer] PLANT OPERATOR will continue to follow if needs arise. AXEL Hernandez
--- NOTE | 2017-02-28 12:49 | PCM.PHAPRO ---
Progress Warfarin dosing WARFARIN MAINTENANCE DOSING INDICATION: A.RITESH Today's INR 1.85 Date February 26-February 27-February 28-February INR 2.36 2.39 2.13 1.85 INR change 0.03 -0.26 -0.28 Warf Dose 5MG 5 MG 7.5MG 7.5MG Plan: * give home dose 7.5mg today * check INR tomorrow and continue to monitor and dose this patient's warfarin Juany Kong Pharm.D February 28, 2017 12:49
[2017-02-28] MEDS ORDERED: 0.9% Sodium Chloride 250 ML IV ONE (13:05)
--- NOTE | 2017-02-28 15:37 | PCM.CHPMED ---
Subjective Date of Service: February 28, 2017 Provider requesting consult: Parvin Mcknight DO Primary Physician: Admitting Physician: Parvin Mcknight DO Primary Care Physician: Marisol Garsia MD Attending Physician: Parvin Mcknight DO Chief Complaint: Chief Complaint: Dyspnea, productive cough History of Present Illness: Patient is a 71 year old male with a history of CHF, atrial fibrillation, HARDY on CPAP, recurrent bronchitis, and peripheral vascular disease. He presented to [facility] on 02/25/17 from his PCP's office (Marisol Garsia MD). He endorsed 3-4 weeks of shortness of breath worse than his baseline. The dyspnea was worse with any activity and at night. He also had an increase in his cough, change in his sputum production, and wheezing (reported by his , Renetta). Sputum described as "vanilla" where his typical is more dhaliwal. His cough is worse at night. At baseline he is able to walk 200-300 yards before he has to rest. He denies fever, chills, sweats, nausea, vomiting, weight changes. He does not use any oxygen at home nor any inhaled medications. He reports that in the past inhalers have been prohibitively expensive and also not helpful. Here in the hospital he reports that the nebulizer therapy is helping loosen his mucus and cough it up. He does not feel as though the O2 supplementation of 2L/min is helpful. He denies any history of asthma or emphysema. He has heard the term COPD but is not sure if he is diagnosed with that. He does report recurrent bronchitis, most notably causing issue in the spring and fall each year. He does have HARDY with a CPAP at home. He is not compliant with CPAP. He does report sleeping in a recliner and has done so for the last 15 years. Sleeping upright makes his breathing easier and calms his acid reflux. Patient has smoked cigarettes for 60 years. He down to 1/2 PPD from 2 1/2 PPD. He denies smoking any other drugs or other drug use. He drinks 2-3 cocktails 3-4 days per week. He has lived in [place] most of his life - [place] He also spent time living in [place] and the [facility]. He spent prolonged periods of time in [place] and [place] for work but denies travel to [place], [place] and [place]. He worked in [employer]. 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 He usually wore a mask during this work. He does do gardening as a hobby with some use of spray pesticides. He has one cat at home but no birds/rodents/reptiles. He has no history of TB exposure. Review of Systems: Constitutional: Denies: Chills, Fever, Sweats Cardiovascular: Reports: Edema, Denies: Chest Pain, Irregular Heart Rate Respiratory: Reports: Cough, SOB with Exertion, Shortness of Breath, Sputum, Wheezing, Denies: Cough with bloody sputum Gastrointestinal: Denies: Abdominal Pain, Nausea, Vomiting PMH Past Medical History Systolic congestive heart failure Atrial fibrillation on chronic anticoagulation with coumadin Obstructive sleep apnea with CPAP Peripheral vascular disease Gout Acid Reflux Home Medications Allopurinol Atorvastatin Furosemide Benazepril Metoprolol Tartrate Coumadin Allergies: Coded Allergies: No Known Allergies (Verified , 08/17/13) Social History Occupation: retired [employer] Hx Alcohol Use: Yes (2-3 cocktails 3-4 days per week)Alcoholic Drinks Per Day: see aboveHx Substance Use: NoHx Tobacco Use: Yes (1/2 ppd) Smoking Status: Current Every Day Smoker (half a pack per day) Unknown if Ever Smoker Living Arrangement: with Family Exam Vital Signs Vital Sign - Last Date Time Temp Pulse Resp B/P Pulse Ox O2 Delivery O2 Flow Rate FiO2 02/28/17 14:37 91 20 93 Nasal Cannula 3.00 02/28/17 10:34 36.6 98/64 Intake and Output 02/27/17 02/27/17 02/28/17 Cumulative From/Thru 15:00 23:00 07:00 02/25/17 10:30 - 02/28/17 06:00 Intake Total 300 ml 1511 ml 0 ml 3876 ml Output Total 1775 ml 2150 ml 7525 ml Balance -1475 ml -639 ml 0 ml -3649 ml Intake Oral 300 ml 1511 ml 3876 ml IV Total 0 ml 0 ml Output Urine Total 1775 ml 2150 ml 7525 ml # Bowel Movements 0 General: Alert, Oriented X3, Cooperative, No Acute Distress Head: Normal Eyes: PERRLA, EOMI, Scleral Anicteric Chest & Lungs: Diminished breath sounds, Expiratory wheezes, Crackles ( bibasilar) Cardiovascular: No Murmurs/Rubs/Gallops, Other (Irregular rate and rhythm) Pulses: Radial (present and equal bilaterally), Dorsalis Pedis (decreased bilaterally) Abdomen: Non-tender, Non-distended, Normoactive bowel tones Genitourinary: Fraire Absent Extremities: Edema (moderate pitting up to the level of the knee) Neurological: Grossly Neurologically Intact, Cranial Nerves 2-12 Intact, Normal Speech, Strength Normal 4/4 ext Lab and Diagnostics Result Diagram: 02/27/17 0552 02/28/17 0510 X-Rays, CTs and MRIs PROCEDURE: CT ANGIO CHEST PULMONARY EMBOLISM IMPRESSION: 1. No central pulmonary embolism with evaluation of distal subsegmental branches limited due to motion artifact. 2. Bibasilar linear atelectasis or consolidation as well as mild bronchial wall thickening and mucous plugging suggestive of aspiration. 3. Mildly enlarged mediastinal, infrahilar, and upper abdominal mesenteric lymph nodes are similar to the prior study and suggestive of reactive nodes. 4. Enlargement of the pulmonary arteries suggesting pulmonary arterial hypertension. Dictated by: Rocco Sahu M.D. on 02/27/2017 at 17:14 Assessment & Plan Assessment 1) Dyspnea, nocturnal and exertional. - This is currently multifactorial. He has had an exacerbation of his CHF. He may also have an underlying acute on chronic bronchitis or COPD exacerbation. - Continue to treat CHF exacerbation and optimize diuretics. - Recommend outpatient PFT's with DLCO in about 2 months (once his acute disease has resolved). - Complete 5 day course of oral prednisone 40 mg daily. - Add azithromycin 5 day course (Z-pack with 500 mg on day one and 250 mg for days 2-5). - The patient is going to need home O2 - at least in the short term. Prior to discharge he will need documented O2 sats on room air and with activity. - The patient will need a nebulizer at discharge. He should continue nebulized albuterol as needed. - He needs to start a long-acting inhaled medication such as Anoro Ellipta ( Umeclidinium and vilanterol inhaled powder). Could be any similar medication as covered by his insurance. - Encourage the patient to quit smoking. This could halt the progression of his lung disease. - Follow up with Dr. Garsia in 1 month to re-evaluate his need for home O2. 2) Mediastinal lymphadenopathy. - As these nodes are under 2 cm in size it is more likely that these are reacting to his acute disease processes. - Repeat CT chest without contrast in about 3 months to re-evaluate the lymph nodes. 3) Obstructive sleep apnea, chronic. - Encourage patient to be compliant with CPAP. - Recommend updated sleep study to ensure correct settings and comfortable equipment. 4) Case management: - Patient concerned about cost. Please check with his insurance to find out if they cover Anoro Ellipta or a similar medication. Also discuss what, if any cost , there will be for him to have home O2 and a nebulizer. Problems: Pain Evaluation: Adequate Pain Control GI Prophylaxis: Not indicated VTE Prophylaxis: Theraputic Anticoag with Warfarin VTE Mechanical Devices: Venous Foot Pump Resuscitation Status: DNR/DNI:Do Not Resuscitate/Intubate ( is his alternate decision maker) Attending Statement I have seen and examined this patient with the resident physician. Vital signs , labs, imaging have been reviewed. I agree with the assessment and plan above. Please refer to my separately dictated progress note for any modifications to above. Julianna Irene M.D. Pulmonary and Critical Care medicine Pager [phone] copies to: Marisol Garsia MD, Jennifer E DO February 28, 2017 15:37 Julianna Irene MD March 01, 2017 08:58
--- NOTE | 2017-02-28 22:26 | PCM.PNMED ---
Subjective Date of Service February 28, 2017 Subjective Patient is seen and examined. He was requesting to be discharged to home as he is feeling better. However in the room he is having a coughing spell during my examination with some facial cyanosis. He still on 2 L of oxygen, he feels that he can take Him home and still be discharged home. He has had no fevers or chills.. Exam Vital Signs Vital Sign - Last Date Time Temp Pulse Resp B/P Pulse Ox O2 Delivery O2 Flow Rate FiO2 02/28/17 20:14 37.1 103 20 125/60 95 Nasal Cannula 2.50 Intake and Output 02/27/17 02/27/17 02/28/17 Cumulative From/Thru 15:00 23:00 07:00 02/25/17 10:30 - 02/28/17 06:00 Intake Total 300 ml 1511 ml 0 ml 3876 ml Output Total 1775 ml 2150 ml 7525 ml Balance -1475 ml -639 ml 0 ml -3649 ml Intake Oral 300 ml 1511 ml 3876 ml IV Total 0 ml 0 ml Output Urine Total 1775 ml 2150 ml 7525 ml # Bowel Movements 0 IVs and Medications IV Fluids None Medications Reviewed: Medications were reviewed in detail Lab and Diagnostics Result Diagram: 02/27/17 0552 02/28/17 0510 X-Rays, CTs and MRIs PROCEDURE: X-RAY CHEST ONE VIEW, PORTABLE ([id number]) INDICATIONS: SOB IMPRESSION: Cardiomegaly with edema. Dictated by: Amy Way M.D. on 02/25/2017 at 12:05 Approved by: Amy Way M.D. on 02/25/2017 at 12:07 PROCEDURE: X-RAY CHEST, TWO VIEWS ([id number]) I IMPRESSION: Left basilar pulmonary opacities mildly increased over the previous chest radiographs most consistent with scarring and/or atelectasis. Consider a chest CT with contrast which may be performed on a non-emergent basis to exclude any underlying mass lesion. Dictated by: Duke Rico M.D. on 02/26/2017 at 20:05 Approved by: Duke Rico M.D. on 02/26/2017 at 20:10 = Chest CTA PE protocol IMPRESSION: 1. No central pulmonary embolism with evaluation of distal subsegmental branches limited due to motion artifact. 2. Bibasilar linear atelectasis or consolidation as well as mild bronchial wall thickening and mucous plugging suggestive of aspiration. 3. Mildly enlarged mediastinal, infrahilar, and upper abdominal mesenteric lymph nodes are similar to the prior study and suggestive of reactive nodes. 4. Enlargement of the pulmonary arteries suggesting pulmonary arterial hypertension. Dictated by: Rocco Sahu M.D. on 02/27/2017 at 17:14 Approved by: Rocco Sahu M.D. on 02/27/2017 at 17:20 CTA PE protocol 02/27/17 IMPRESSION: 1. No central pulmonary embolism with evaluation of distal subsegmental branches limited due to motion artifact. 2. Bibasilar linear atelectasis or consolidation as well as mild bronchial wall thickening and mucous plugging suggestive of aspiration. 3. Mildly enlarged mediastinal, infrahilar, and upper abdominal mesenteric lymph nodes are similar to the prior study and suggestive of reactive nodes. 4. Enlargement of the pulmonary arteries suggesting pulmonary arterial hypertension. Dictated by: Rocco Sahu M.D. on 02/27/2017 at 17:14 Approved by: Rocco Sahu M.D. on 02/27/2017 at 17:20 Cardiac Echo Impressions US echo Interpretation Summary The left ventricle is moderately dilated. Left ventricular systolic function is mild to moderately reduced. The ejection fraction is estimated to be 40- 45%. Compared to the prior exam, left ventricular function is slightly decreased. There is a large sized apical, septal, and anteroseptal wall motion abnormality with hypokinesis to akinesis of the segments. The right ventricle is mild to moderately dilated. Right ventricular systolic function is mildly reduced. The right ventricular systolic pressure is estimated at 56 mmHg assuming a right atrial pressure of 15 mm Hg. The left atrium is severely dilated. The right atrium is moderate to severely dilated. There is mild mitral regurgitation. There is mild to moderate tricuspid regurgitation. There is no other significant valvular heart disease. No significant changes since last study. The aortic root is normal size. Reading Physician:PM Chest CTA PE protocol -- IMPRESSION: 1. No central pulmonary embolism with evaluation of distal subsegmental branches limited due to motion artifact. 2. Bibasilar linear atelectasis or consolidation as well as mild bronchial wall thickening and mucous plugging suggestive of aspiration. 3. Mildly enlarged mediastinal, infrahilar, and upper abdominal mesenteric lymph nodes are similar to the prior study and suggestive of reactive nodes. 4. Enlargement of the pulmonary arteries suggesting pulmonary arterial hypertension. Dictated by: Rocco Sahu M.D. on 02/27/2017 at 17:14 Approved by: Rocco Sahu M.D. on 02/27/2017 at 17:20 Assessment & Plan This is a 71-year-old male presenting to the ER with symptoms of acute on chronic congestive heart failure. Assessment #1 acute hypoxic respiratory failure secondary to acute on chronic chronic congestive systolic heart failure: Present on admission -- Lasix 40 mg IV every 8 hours: Change to Lasix 40 mg IV to 12 hours -- Accurate I&O's, daily weights: He diuresed close to 3 L -- Nitroglycerin has not been ordered due to concern for low blood pressure upon arrival -- Morphine 1-2 g every 4 hours when necessary -- Continue metoprolol, atorvastatin home medications -- Oxygen to keep saturations 80-92% -- Patient is much improved still unknown to 2 L of oxygen -- Echo showed slightly worsened EF (40-45%) , pulm HTN. -- Added lisinopril to optimize therapy for CHF patient is already on atorvastatin, beta kristy metoprolol and Plavix. He takes some Lasix. Assessment #2 COPD exacerbation, acute on chronic POA -- Xopenex, Atrovent breathing treatments -- We will hold off on Solu-Medrol as this appears to be primarily CHF -- Nicotine patch -- Solu-Medrol 40 mg IV twice a day: He switched to by mouth prednisone 40 mg QDon 02/27 -- Repeat chest x-ray: Left basilar pulmonary opacities mildly increased over the previous chest radiographs most consistent with scarring and/or atelectasis. Consider a chest CT with contrast which may be performed on a non- emergent basis to exclude any underlying mass lesion. -- Chest CTA is performed: Negative for PE but there is concern for aspiration, mediastinal reactive lymphadenopathy -- Pulmonolgy is consulted to optimize COPD tx: Dr. Irene will see the patient : " Assessment #3 cellulitis of lower legs, present on admission -- Keflex by mouth he is ordered -- Improving Assessment #4 pulmonary hypertension: As evidenced by the echo and CT scan. -- The patient has a rag inspector he sees Dr. Koehler with whom he has an appointment in a week and half. Patient should follow up with Dr. Koehler -- Discussed patient's echocardiogram did rag inspector Dr. Gomez who feels the patient can be safely followed up in [address] Koehler as outpatient Assessment #5 concern for aspiration -- Swallow studies ordered: The noticed problem with dyssynchrony of his inhalation exhalation pattern and his swallowing. Barium swallow is recommended , test is ordered Assessment #6 hypertension, chronic -- We will replace home medication benazepril to lisinopril at the time of discharge -- Continue metoprolol Assessment #7 atrial fibrillation, chronic: Therapeutic INR upon arrival X -- Pharmacy consult is placed for Coumadin -- INR in therapeutic range Assessment #8 peripheral neuropathy, present on admission -- Gabapentin 100 mg twice a day is ordered Assessment #9 hyperlipidemia, chronic -- Continue home statin assessment #10: Reactive abdominal lymphadenopathy -- We will discuss this with radiology: We did call radiologist injection maintenance technician and discuss this with the radiology. They feel that a CT follow-up in 3 months is called for. The discomfort be due to viral infection versus malignant etiologies assessment #11 hyperkalemia resolved -- Repeat lab in the evening Disposition:: When patient's symptoms resolved he will be expected to be discharged to home GI Prophylaxis: Not indicated VTE Prophylaxis: Theraputic Anticoag with Warfarin VTE Mechanical Devices: Venous Foot Pump Resuscitation Status: DNR/DNI:Do Not Resuscitate/Intubate ( is his alternate decision maker) Time spent 35 minutes Mcknight,Parvin DO February 28, 2017 22:26
[2017-03-01 00:26] VITALS: BP 125/75; PULSE 82; RESP 20; O2SAT 94
[2017-03-01] MEDS: Albuterol-Ipratropium 3 mL Inhalation Solution NEB SCH ×2 (02:30→07:56)
[2017-03-01 04:48] VITALS: BP 127/76; PULSE 109; RESP 18; O2SAT 95
--- NOTE | 2017-03-01 05:32 | NUR ---
NOC Activity Pt denies chest pain. Still on 2LPM NC and has been saturating 89-90%. Denies n/v or abd discomfort. Has been independently using the urinal. HS meds administered as scheduled. VSS and has been afebrile overnight. Hourly rounding in effect.
[2017-03-01 05:54] VITALS: PULSE 100
--- NOTE | 2017-03-01 06:03 | CONS ---
[address] [address] CONSULTATION REPORT PATIENT: MARYJO PABLO : 1945 MR#: [id number] ADMIT: 02/25/2017 JOB ID: [id number] DATE OF SERVICE: 02/28/2017 PULMONARY CONSULTATION NOTE: The patient is a 71-year-old man seen in consultation at the request of Dr. Parvin Mcknight for evaluation of hypoxia, mediastinal lymphadenopathy and COPD exacerbation. The patient was seen and evaluated with resident physician, Dr. Blessing Ag. Please refer to her separate detailed note for additional information. HISTORY OF PRESENT ILLNESS: The patient is a 71-year-old man with a 60+ pack-year smoking history, currently smoking half a pack a day. He was admitted with about a 3-week history of shortness of breath with increased cough, sputum production and wheezing. He was admitted initially on February 25 and treated with diuretics for CHF exacerbation. He also received nebulizers around the clock. Prior to that he had been taking no inhaled medications because "they were too expensive." He was being set up for discharge yesterday but was found to be still hypoxic, requiring 2 L of oxygen. He had a CT pulmonary angiogram done which showed no pulmonary embolism and no pulmonary infiltrates but there was evidence of mediastinal lymphadenopathy. Also, he was started on 40 mg of prednisone starting this morning. The patient is feeling a little bit better and feels that his lower extremity edema has improved with the diuresis but his breathing has not completely improved. PAST MEDICAL HISTORY, SOCIAL HISTORY, FAMILY HISTORY, AND REVIEW OF SYSTEMS: Per Dr. Ag's separate detailed note. Also, detailed physical exam is in her note. Of note, in his past medical history is: 1. Atrial fibrillation, on Coumadin. 2. Peripheral vascular disease. 3. Coronary artery disease. 4. COPD. SOCIAL HISTORY: Half a pack a day smoker currently but previously 60 pack-year smoker. PHYSICAL EXAMINATION: Afebrile. He is on 2 L oxygen. General: Sitting in bed, breathing comfortably. Chest: Occasional bilateral wheezes. LABORATORIES: Reviewed. Procalcitonin negative. ProBNP of 4000 on admission. Respiratory viral PCR is negative, and blood cultures, as well as sputum cultures, are negative. Chest x-ray reviewed and minimal basilar atelectasis. CT pulmonary angiogram, February 27, 2017, reviewed and shows no pulmonary emboli. Bilateral basilar atelectasis. Mediastinal lymphadenopathy primarily pretracheal measuring less than 2 cm. Echocardiogram from February 26 shows ejection fraction of 40% to 45%. Moderately dilated left ventricle. Multiple segments with hypokinesis/akinesis. Right ventricle is mild to moderately dilated and the systolic function is mildly reduced. RVSP 56 mm. Left atrium and right atrium are both dilated significantly. This is stable, without any significant changes compared to the prior study. ASSESSMENT: 1. Acute hypoxic respiratory failure -- on 2 L nasal cannula. 2. Chronic obstructive pulmonary disease exacerbation. 3. Mediastinal lymphadenopathy. 4. Decompensated heart failure with systolic dysfunction. 5. Mild to moderate pulmonary hypertension. Right ventricular systolic pressure 56 mm. This 71-year-old man with 60+ pack-year ongoing smoking history is here with what appears to be decompensated right and left heart failure, as well as chronic obstructive pulmonary disease exacerbation. He is continuing to smoke half a pack a day and has not had any PFTs recently or had any inhalers at baseline. His pulmonary hypertension is most likely due to a combination of Left heart disease and COPD and does not warrant pulmonary vasodilatory therapy. First, I think we should treat his current chronic obstructive pulmonary disease exacerbation with prednisone, as we started doing this morning. I would also add azithromycin -- a 5-day course starting at 500 mg and then 250 mg for the next four days. I also tried to convince the patient that based on his current oxygenation he would benefit significantly from wearing oxygen all the time. This may just be temporary until he recovers from the current exacerbation. I would recommend having this retested in about a month's time. RECOMMENDATIONS: 1. I asked him to start using Anoro Ellipta inhaler as an outpatient which contains a combination of a long-acting beta agonist and a long-acting muscarinic. Any substitution is fine but ideally, he should be on a LABA and a LAMA even if it is not the specific drug. We requested the psychologist social to check with his insurance regarding prices, etc. which are of primary concern to the patient. 2. I recommend that we give the patient a nebulizer to take home, with albuterol nebulizer medication vials. He does not need DuoNeb because he is getting long-acting muscarinic in his inhalers. 3. He needs to be on home oxygen at this point but I would recommend that he followup with his PCP in about a month's time to see if he still qualifies for oxygen. 4. I encouraged him to be compliant with his CPAP at night because this may prevent him from needing oxygen at night. He is really keen to avoid oxygen. 5. I also counseled him regarding smoking cessation. 6. I recommended that he get pulmonary function tests done as an outpatient in about 2-3 months after he is recovered from his acute illness. 7. Lastly, for his mediastinal lymphadenopathy, he should get a followup chest CT in about 2-3 months. At this point, the size, appearance and lack of any associated symptoms make this less concerning to me for malignancy. It could be from granulomatous disease or from decompensated heart failure/bronchitis. Regardless, he needs a noncontrast chest CT in about 2-3 months to ensure stability. All of the above recommendations were conveyed to Dr. Mcknight by Dr. Ag. Please contact me for any further questions. EMIR
[2017-03-01 06:21] LABS: INR 1.68 ratio
--- NOTE | 2017-03-01 07:53 | PCM.PHAPRO ---
Progress Dyspnea, productive cough February 28-March 01-February 2.13 1.85 1.68 -0.26 -0.28 -0.17 7.5MG 7.5MG 7.5MG Sam Aragon Pharm.D March 01, 2017 07:53
[2017-03-01 07:56] VITALS: PULSE 99; RESP 18; O2SAT 91
[2017-03-01 08:00] VITALS: PULSE 101
[2017-03-01] MEDS: predniSONE 20 mg Tablet PO SCH (08:24)
[2017-03-01] MEDS ORDERED: Fluticasone-Salmeterol 100-50 Inhaler INHALATION SCH (08:30)
[2017-03-01 09:04] VITALS: BP 124/78; PULSE 104; RESP 18; O2SAT 90
[2017-03-01] MEDS ORDERED: GABA100C PO (13:15)
[2017-03-01] MEDS ORDERED: LISI-571 PO (13:15)
[2017-03-01] MEDS ORDERED: CEPH500C PO (13:15)
[2017-03-01] MEDS ORDERED: PRED-508 PO (13:15)
[2017-03-01] MEDS ORDERED: METO75TA PO (13:49)
[2017-03-01] MEDS ORDERED: TIOT18CA3 IH (13:53)
[2017-03-01] MEDS ORDERED: FUR20 PO (13:56)
[2017-03-01] MEDS ORDERED: ADV100INH IH (13:58)
--- NOTE | 2017-03-01 14:05 | PCM.DIMED ---
Discharge Instructions Date of Service March 01, 2017 Dates of Hospitalization February 25, 2017 at 13:30 Discharge Diagnosis Discharge Diagnosis acute on chronic VHF,pulmonary hypertension, copd exacerbation, afib, hypertension, peripheral neuropathy Diet Heart Healthy Activity Limited until seen by PCP (needing oxygen 2L via NC) Call your provider Fever or Chills, Shortness of breath, Bleeding, Chest pain, Vomitting, Excessive diarrhea, Weakness (unilateral), Other Patient Instructions Please work on tobacco cessation Wear your CPAP mask regularly Use oxygen 2 L for rest and ambulation, your PCP will review this with you in one month Note changes to your other meds. Take 7.5 mg coumadin 03/02 and go back to your previous dosing. Follow-up plan PCP F/U in one week Follow up with Dr. Koehler in 2 weeks I recommended that he get pulmonary function tests done as an outpatient in about 2-3 months after he is recovered from his acute illness. For his mediastinal lymphadenopathy, he should get a followup non contrast chest CT in about 2-3 months. Repeat INR on 03/04/17, send to PCP Parvin Mcknight DO March 01, 2017 14:05
[2017-03-01] MEDS ORDERED: AZIT250T4 PO (14:14)
--- NOTE | 2017-03-01 15:00 | NUR ---
Discharge Nursing Note: Patient was discharged to home at 1500. Patients Iv was removed intact . His telemetry was discontinued. Respiratory therapy came and evaluated patient for home O2 per MD order, and he was set up for 02 tank delivery at his home after discharge. All of patients discharge information was reviewed with him and his questions were answered to his satisfaction. patient was brought to the hospital lobby in a wheelchair by nursing staff member and he was driven to home by his .
--- NOTE | 2017-03-01 15:11 | NUR ---
At rest on RA Sp02 84%, placed on 2lpm at rest for sp02 92%. With ambulation patient requires 3lpm for sp02 93%.
[2017-03-01] MEDS ORDERED: Warfarin 5 MG, Warfarin 2.5 MG PO ONE ×2 (17:00)
--- NOTE | 2017-03-01 23:50 | PCM.DC.MED ---
Discharge Summary Date of Service March 01, 2017 Dates of Hospitalization Date of Hospital Admission February 25, 2017 at 13:30 Date of Discharge: March 01, 2017 Providers: Admitting Physician: Parvin Sheldon DO Primary Care Physician: Marisol Garsia MD Attending Physician: Parvin Sheldon DO Diagnosis at Time of Discharge Diagnosis at Time of Discharge acute on chronic CHF,pulmonary hypertension, copd exacerbation, cellulitis of leg, afib, hypertension, peripheral neuropathy Procedures XRay, CTs & MRIs PROCEDURE: X-RAY CHEST ONE VIEW, PORTABLE ([id number]) INDICATIONS: SOB IMPRESSION: Cardiomegaly with edema. Dictated by: Amy Way M.D. on 02/25/2017 at 12:05 Approved by: Amy Way M.D. on 02/25/2017 at 12:07 PROCEDURE: X-RAY CHEST, TWO VIEWS ([id number]) I IMPRESSION: Left basilar pulmonary opacities mildly increased over the previous chest radiographs most consistent with scarring and/or atelectasis. Consider a chest CT with contrast which may be performed on a non-emergent basis to exclude any underlying mass lesion. Dictated by: Duke Rico M.D. on 02/26/2017 at 20:05 Approved by: Duke Rico M.D. on 02/26/2017 at 20:10 = Chest CTA PE protocol IMPRESSION: 1. No central pulmonary embolism with evaluation of distal subsegmental branches limited due to motion artifact. 2. Bibasilar linear atelectasis or consolidation as well as mild bronchial wall thickening and mucous plugging suggestive of aspiration. 3. Mildly enlarged mediastinal, infrahilar, and upper abdominal mesenteric lymph nodes are similar to the prior study and suggestive of reactive nodes. 4. Enlargement of the pulmonary arteries suggesting pulmonary arterial hypertension. Dictated by: Rocco Sahu M.D. on 02/27/2017 at 17:14 Approved by: Rocco Sahu M.D. on 02/27/2017 at 17:20 CTA PE protocol 02/27/17 IMPRESSION: 1. No central pulmonary embolism with evaluation of distal subsegmental branches limited due to motion artifact. 2. Bibasilar linear atelectasis or consolidation as well as mild bronchial wall thickening and mucous plugging suggestive of aspiration. 3. Mildly enlarged mediastinal, infrahilar, and upper abdominal mesenteric lymph nodes are similar to the prior study and suggestive of reactive nodes. 4. Enlargement of the pulmonary arteries suggesting pulmonary arterial hypertension. Dictated by: Rocco Sahu M.D. on 02/27/2017 at 17:14 Approved by: Rocco Sahu M.D. on 02/27/2017 at 17:20 Cardiac Echo Impression US echo Interpretation Summary The left ventricle is moderately dilated. Left ventricular systolic function is mild to moderately reduced. The ejection fraction is estimated to be 40- 45%. Compared to the prior exam, left ventricular function is slightly decreased. There is a large sized apical, septal, and anteroseptal wall motion abnormality with hypokinesis to akinesis of the segments. The right ventricle is mild to moderately dilated. Right ventricular systolic function is mildly reduced. The right ventricular systolic pressure is estimated at 56 mmHg assuming a right atrial pressure of 15 mm Hg. The left atrium is severely dilated. The right atrium is moderate to severely dilated. There is mild mitral regurgitation. There is mild to moderate tricuspid regurgitation. There is no other significant valvular heart disease. No significant changes since last study. The aortic root is normal size. Reading Physician:PM Chest CTA PE protocol -- IMPRESSION: 1. No central pulmonary embolism with evaluation of distal subsegmental branches limited due to motion artifact. 2. Bibasilar linear atelectasis or consolidation as well as mild bronchial wall thickening and mucous plugging suggestive of aspiration. 3. Mildly enlarged mediastinal, infrahilar, and upper abdominal mesenteric lymph nodes are similar to the prior study and suggestive of reactive nodes. 4. Enlargement of the pulmonary arteries suggesting pulmonary arterial hypertension. Dictated by: Rocco Sahu M.D. on 02/27/2017 at 17:14 Approved by: Rocco Sahu M.D. on 02/27/2017 at 17:20 Brief History Patient is a 71 year old male with a history of CHF, atrial fibrillation, HARDY on CPAP, recurrent bronchitis, and peripheral vascular disease. He presented to [facility] on 02/25/17 from his PCP's office (Marisol Garsia MD). He endorsed 3-4 weeks of shortness of breath worse than his baseline. The dyspnea was worse with any activity and at night. He also had an increase in his cough, change in his sputum production, and wheezing (reported by his , Renetta). Sputum described as "vanilla" where his typical is more dhaliwal. His cough is worse at night. At baseline he is able to walk 200-300 yards before he has to rest. He denies fever, chills, sweats, nausea, vomiting, weight changes. He does not use any oxygen at home nor any inhaled medications. He reports that in the past inhalers have been prohibitively expensive and also not helpful. Here in the hospital he reports that the nebulizer therapy is helping loosen his mucus and cough it up. He does not feel as though the O2 supplementation of 2L/min is helpful. He denies any history of asthma or emphysema. He has heard the term COPD but is not sure if he is diagnosed with that. He does report recurrent bronchitis, most notably causing issue in the spring and fall each year. He does have HARDY with a CPAP at home. He is not compliant with CPAP. He does report sleeping in a recliner and has done so for the last 15 years. Sleeping upright makes his breathing easier and calms his acid reflux. Patient has smoked cigarettes for 60 years. He down to 1/2 PPD from 2 1/2 PPD. He denies smoking any other drugs or other drug use. He drinks 2-3 cocktails 3-4 days per week. He has lived in [place] most of [place] life - [place] He also spent time living in [place] and the [facility] [place]. He spent prolonged periods of time in [place] and [place] for work but denies travel to [place], [place] and [place]. 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 He usually wore a mask during this work. He does do gardening as a hobby with some use of spray pesticides. He has one cat at home but no birds/rodents/reptiles. He has no history of TB exposure. Hospital Course This is a 71-year-old male presenting to the ER with symptoms of acute on chronic congestive heart failure. Assessment #1 acute hypoxic respiratory failure secondary to acute on chronic chronic congestive systolic heart failure: Present on admission -- Lasix 40 mg IV every 8 hours: Change to Lasix 40 mg IV to 12 hours -- Accurate I&O's, daily weights: He diuresed close to 3 L -- Nitroglycerin has not been ordered due to concern for low blood pressure upon arrival -- Morphine 1-2 g every 4 hours when necessary -- Continue metoprolol, atorvastatin home medications -- Oxygen to keep saturations 80-92% -- Patient is much improved still unknown to 2 L of oxygen -- Echo showed slightly worsened EF (40-45%) , pulm HTN. -- Added lisinopril to optimize therapy for CHF patient is already on atorvastatin, beta kristy metoprolol and Plavix. He takes some Lasix. -- Increased Lasix at home to 60 mg twice a day to provide better diuresis -- Patient is needing 2 L oxygen both at rest and ambulation, will write for this for discharge -- The patient is given scripts for lisinopril, increased dose of metoprolol to control his rate better. -- Patient is given scripts for follow-up BMP Assessment #2 COPD exacerbation, acute on chronic POA -- Xopenex, Atrovent breathing treatments -- We will hold off on Solu-Medrol as this appears to be primarily CHF -- Nicotine patch -- Solu-Medrol 40 mg IV twice a day: He switched to by mouth prednisone 40 mg QDon 02/27 -- Repeat chest x-ray: Left basilar pulmonary opacities mildly increased over the previous chest radiographs most consistent with scarring and/or atelectasis. Consider a chest CT with contrast which may be performed on a non- emergent basis to exclude any underlying mass lesion. -- Chest CTA is performed: Negative for PE but there is concern for aspiration, mediastinal reactive lymphadenopathy -- Pulmonolgy is consulted to optimize COPD tx: Dr. Irene will see the patient : She recommended starting patient on Breo anoro LABA/steroid and LAMA. She also recommended albuterol nebs, again patient preferred to take chronic scripts and wanted to leave . Patient did not want to wait for the scripts to be approved by his insurance. We have also offered to keep him in the hospital until his INR is therapeutic, heart rate is further improved. Patient repeatedly declined. He is already dressed to go and stated that he is going to a baby shower constitution party that is being arranged by his . -- Patient is given scripts for Spiriva, Advair. -- We Request the PCP order some follow-up PFT Assessment #3 cellulitis of lower legs, present on admission -- Keflex by mouth he is ordered -- Improving, will give prescription for 7 more days Assessment #4 pulmonary hypertension: As evidenced by the echo and CT scan. -- The patient has a motion study engineer he sees Dr. Koehler with whom he has an appointment in a week and half. Patient should follow up with Dr. Koehler -- Discussed patient's echocardiogram did motion study engineer Dr. Gomez who feels the patient can be safely followed up in [address] Koehler as outpatient -- Patient is asked to follow-up with Dr. Koehler in 2 weeks ---- The patient is advised to use his CPAP for HARDY. Assessment #5 concern for aspiration -- Swallow studies ordered: The noticed problem with dyssynchrony of his inhalation exhalation pattern and his swallowing. Barium swallow is recommended , test is ordere on 02/28 -- PCP is requested to either the per the results of this test and if it is not done, order the tests as outpatient (again, patient did not want to wait till we reviewed his results) Assessment #6 hypertension, chronic -- We will replace home medication benazepril to lisinopril at the time of discharge -- Continue metoprolol Assessment #7 atrial fibrillation, chronic: Therapeutic INR upon arrival X -- Pharmacy consult is placed for Coumadin -- INR is at subtherapeutic: Patient is asked to take one more dose of 7.5 mg tomorrow and then switch to his home dosing protocol. -- Repeat INR lab order prescription is given Assessment #8 peripheral neuropathy, present on admission -- Gabapentin 100 mg twice a day is ordered Assessment #9 hyperlipidemia, chronic -- Continue home statin assessment #10: Reactive abdominal lymphadenopathy -- We will discuss this with radiology: We did call radiologist station repairer and discuss this with the radiology. They feel that a CT follow-up in 3 months is called for. The discomfort be due to viral infection versus malignant etiologies assessment #11 hyperkalemia resolved -- Repeat lab in the evening Exam Vital Signs (Last) Date Time Temp Pulse Resp B/P Pulse Ox O2 Delivery O2 Flow Rate FiO2 03/01/17 09:04 36.7 104 18 124/78 90 Nasal Cannula 2.50 Exam General: NAD, laying in bed, some what dyspneic male HEENT: NCAT, poor dentition Eyes: Combs conjunctivae. No ptosis, PERRL Neck: No masses, trachea midline, no thyromegaly, legs improved edema, erythema Lungs: Good lungs sounds CV: RRR, positive for soft systolic murmur murmurs GI: Soft, non-tender with no hepatosplenomegaly MSK: Normal gait and station, no digital cyanosis Skin: Warm and dry. erythema on the right lower leg has much improved Psych: A&O X3, with appropriate affect Test 02/25/17 11:15 02/25/17 11:30 02/25/17 12:44 02/25/17 16:31 Neutrophils (%) (Auto) 65.6% (40-74) Lymphocytes (%) (Auto) 18.3% (14-46) Monocytes (%) (Auto) 14.6% (4-12) Eosinophils (%) (Auto) 1.1% (0-5) Basophils (%) (Auto) 0.2% (0-3) Magnesium Level 1.5mg/dL (1.6-2.6) Total Bilirubin 0.9mg/dL (0.0-1.2) Aspartate Amino Transf (AST/SGOT) 23U/L (0-50) Alanine Aminotransferase (ALT/SGPT) 5U/L (0-44) Alkaline Phosphatase 118U/L (25-160) Pro-B-Type Natriuretic Peptide 4006pg/mL (0-376) Total Protein 6.6g/dL (6.4-8.4) Albumin 3.3g/dL (3.4-5.0) Lactic Acid Level 1.2mmol/L (0.4-2.0) Urine Color Yellow (YELLOW) Urine Appearance Clear (CLEAR,HAZY) Urine pH 5.5 (5.0-8.0) Urine Specific Gilbert 1.015 (1.003-1.035) Urine Protein Tracemg/dL (NEG,TRACE) Urine Glucose (UA) Negativemg/dL (NEGATIVE) Urine Ketones Negativemg/dL (NEGATIVE) Urine Occult Blood Negative (NEGATIVE) Urine Nitrite Negative (NEGATIVE) Urine Bilirubin Negative (NEGATIVE) Urine Urobilinogen Normalmg/dL (NORMAL) Urine Leukocyte Esterase Negative (NEGATIVE) Urine RBC 0-2/hpf (0-2) Urine WBC 0-5/hpf (0-5) Urine Epithelial Cells Occasional/hpf (NONE-MOD) Urine Crystals Oxalic acid crystals (NONE Urine Bacteria None/hpf (NONE-FEW) Urine Hyaline Casts 03/01/lpf (NONE) Urine Granular Casts None seen (NONE SEEN) Urine Waxy Casts None seen (NONE SEEN) Urine Red Blood Cell Casts None seen (NONE SEEN) Urine White Blood Cell Casts None seen (NONE SEEN) Urine Mucus Present (None Seen) Urine Trichomonas None seen (NONE SEEN) Urine Yeast None (NONE SEEN) Urinalysis Comment None Urine Culture Reflexed Not indicated Total Creatine Kinase 152U/L (24-204) Creatine Kinase MM 100% (97-100) Creatine Kinase MB 0% (0-3) Creatine Kinase BB 0% (0) Macro Creatine Kinase Type I 0% (Not Observed) Macro Creatine Kinase Type II 0% (Not Observed) Test 02/25/17 23:15 02/27/17 05:52 02/28/17 05:10 03/01/17 05:37 Troponin T 0.010ug/L (0.0-0.011) White Blood Count 6.9th/mm3 (3.8-10.1) Red Blood Count 4.60mil/mm3 (4.40-5.80) Hemoglobin 14.5g/dL (13.8-17.2) Hematocrit 46.5% (41.0-50.0) Mean Corpuscular Volume 101.1fL (81-100) Mean Corpuscular Hemoglobin 31.5pg (27.0-35.0) Mean Corpuscular Hemoglobin Concent 31.2% (32.0-37.0) Red Cell Distribution Width 15.4% (12.3-15.4) Platelet Count 109bil/L (150-400) Procalcitonin 0.05ng/mL (0.00-0.08) Prothrombin Time 18.2sec (8.1-12.5) Prothromb Time International Ratio 1.68ratio Test 03/01/17 07:46 Sodium Level 139mEq/L (134-144) Potassium Level 5.1mEq/L (3.5-5.2) Chloride Level 91mEq/L (97-108) Carbon Dioxide Level 40mmol/L (18-29) Blood Urea Nitrogen 29mg/dL (8-27) Creatinine 0.89mg/dL (0.76-1.27) Estimat Glomerular Filtration Rate 90mL/min (>59) Glucose Level 128mg/dL (60-99) Calcium Level 10.1mg/dL (8.5-10.1) Discharge Medications Discharge Medications Allopurinol (Allopurinol) 100 Mg Tablet 100 MG PO DAILY (Reported) Atorvastatin (Lipitor) 40 Mg Tablet 40 MG PO DAILY (Reported) Cephalexin (Cephalexin) 500 Mg Capsule 500 MG PO BID Prescribed by: PARVIN SHELDON DO Fluticasone/Salmeterol (Advair 100-50 Diskus) 60 Puffs/Inh Disk 1 PUFFS IH BID Prescribed by: PARVIN SHELDON DO Furosemide (Furosemide) 20 Mg Tab 60 MG PO BID Prescribed by: PARVIN SHELDON DO Gabapentin (Neurontin) 100 Mg Capsule 100 MG PO BID Prescribed by: PARVIN SHELDON DO Lisinopril (Lisinopril) 5 Mg Tablet 2.5 MG PO DAILY Prescribed by: PARVIN SHELDON DO Metoprolol Tartrate (Metoprolol Tartrate) 75 Mg Tablet 75 MG PO BID Prescribed by: PARVIN SHELDON DO Prednisone (Deltasone) 20 Mg Tablet 40 MG PO DAILY Prescribed by: PARVIN SHELDON DO Tiotropium [place] (Spiriva) 18 Mcg Cap.w.dev 18 MCG IH DAILY Prescribed by: PARVIN SHELDON DO Warfarin Sodium (Warfarin Sodium) 5 Mg Tablet 5 MG PO DIRECTED (Reported) 1 tablet PO on Sun, Tues, Th, and Sat 1.5 tablets PO on Mon, Wed, Fri Followup Plan Follow-up plan PCP F/U in one week Follow up with Dr. Koehler in 2 weeks I recommended that he get pulmonary function tests done as an outpatient in about 2-3 months after he is recovered from his acute illness. For his mediastinal lymphadenopathy, he should get a followup non contrast chest CT in about 2-3 months. Repeat INR on 03/04/17, send to PCP Discharge Diet: Heart Healthy Discharge Activity: Limited until seen by PCP (needing oxygen 2L via NC) Patient Instructions Please work on tobacco cessation Wear your CPAP mask regularly Use oxygen 2 L for rest and ambulation, your PCP will review this with you in one month Note changes to your other meds. Take 7.5 mg coumadin 03/02 and go back to your previous dosing. Time spent 45 min Parvin Sheldon DO March 01, 2017 23:50
== END 2017-03-01 15:05 | disposition home or self-care (01) | DRG 291 ==
LOC: SED 10:28 → MPC 13:30
PROVIDERS: ADMIT Family Medicine; ATTEND Family Medicine
DX: I50.23 Acute on chronic systolic (congestive) heart failure (principal); J96.01 Acute respiratory failure with hypoxia; L03.116 Cellulitis of left lower limb; J44.1 Chronic obstructive pulmonary disease with (acute) exacerbation; L03.115 Cellulitis of right lower limb; I48.2 Chronic atrial fibrillation; Z79.01 Long term (current) use of anticoagulants; Z66 Do not resuscitate; I10 Essential (primary) hypertension; E11.9 Type 2 diabetes mellitus without complications; G62.9 Polyneuropathy, unspecified; F17.210 Nicotine dependence, cigarettes, uncomplicated; I07.1 Rheumatic tricuspid insufficiency; I27.2 Other secondary pulmonary hypertension; E87.5 Hyperkalemia; I73.9 Peripheral vascular disease, unspecified; G47.33 Obstructive sleep apnea (adult) (pediatric); Z95.1 Presence of aortocoronary bypass graft